=== PATIENT | male | born 1940 | race African-American/Black ===

== ENCOUNTER 2018-03-16 01:27 | Inpatient (IN) | payer MEDICARE, MEDICAID ==
[~2018-03-16] VITALS: Ht 175.3 cm; Wt 84.2 kg
[2018-03-16] VITALS (8 sets, daily range): BP systolic 111–164; BP diastolic 66–82
[~2018-03-16 01:27] MED LIST: ANTIVERT25 MG ORAL; ASPIRIN EC81 MG PO; BYSTOLIC10 MG ORAL; CARDURA4 MG PO; CATAPRES0.1 MG PO; CILOSTAZOL100 MG PO; COLACE100 MG PO; COZAAR50 MG PO; FLOMAX0.4 MG PO; KLOR-CON M1010 MEQ PO; LASIX20 MG PO; METOPROLOL TART25 MG PO; NEURONTIN100 MG PO; NORVASC5 MG PO; VITAMIN B COMP1 EAC1 PO
[2018-03-16] MEDS ORDERED: Acetaminophen 500mg (ES) tab ORAL ONE (02:00)
[2018-03-16] MEDS ORDERED: Isovue-300 100ml vial INJ PRN (02:00)
[2018-03-16 02:28] LABS: BASOPHILS % (AUTO) 1.4 % (0.0-2.0); EOSINOPHILS % (AUTO) 1.2 % (0.0-3.0); HEMATOCRIT 38.5 % (42.0-52.0); HEMOGLOBIN 12.6 G/DL (14.2-18.0); LYMPHOCYTES % (AUTO) 15.3 % (20.0-45.0); MEAN CORPUSCULAR VOLUME 90 FL (80-99); MONOCYTES % (AUTO) 9.1 % (1.0-10.0); NEUTROPHILS % (AUTO) 73.1 % (45.0-75.0); PLATELET COUNT 240 K/UL (150-450); RED BLOOD COUNT 4.28 M/UL (4.70-6.10); RED CELL DISTRIBUTION WIDTH 12.1 % (11.6-14.8); WHITE BLOOD COUNT 8.6 K/UL (4.8-10.8)
[2018-03-16 02:47] LABS: ANION GAP 12 mmol/L (5-15); BLOOD UREA NITROGEN 28 mg/dL (7-18); CALCIUM 9.6 MG/DL (8.5-10.1); CARBON DIOXIDE 24 MMOL/L (21-32); CHLORIDE 107 MMOL/L (98-107); CREATININE 2.4 MG/DL (0.55-1.30); POTASSIUM 4.6 MMOL/L (3.5-5.1); SODIUM 143 MMOL/L (136-145)
[2018-03-16 02:48] LABS: INR 1.1 (0.9-1.1)
[2018-03-16 02:53] LABS: APPEARANCE,URINE CLEAR; BILIRUBIN, URINE NEGATIVE (NEGATIVE); COLOR,URINE PALE YELLOW; GLUCOSE, URINE (UA) 2+ (NEGATIVE); KETONES,URINE NEGATIVE (NEGATIVE); LEUKOCYTE ESTERASE ,URINE NEGATIVE (NEGATIVE); NITRITE,URINE NEGATIVE (NEGATIVE); PH,URINE 5 (4.5-8.0); UROBILINOGEN,URINE NORMAL MG/DL (0.0-1.0)
[2018-03-16 02:57] LABS: PROTEIN,URINE NEGATIVE (NEGATIVE)
[2018-03-16 02:58] LABS: ALANINE AMINOTRANSFERASE 112 U/L (12-78); ALBUMIN/GLOBULIN RATIO 0.9 (1.0-2.7); ALKALINE PHOSPHATASE 110 U/L (46-116); ASPARTATE AMINO TRANSFERASE 56 U/L (15-37); BILIRUBIN,TOTAL 0.4 MG/DL (0.2-1.0)
--- NOTE | 2018-03-16 05:26 | Emergency Room Report ---
History of Present Illness General Chief Complaint: Pain Source: Patient, Significant Other Present Illness HPI Patient presents with left groin pain. This may going on for several weeks. It 's now worsened over the last 3 days. He had a hernia repair in the past. It feels somewhat like that. There is no testicular pain. He has constipation but has moved his bowels. There is abdominal fullness and some discomfort. No dysuria/hematuria. Pain rated 6/10, constant and worse with straining. Pressure and aching. No vomiting. The patient is status post colon resection and left nephrectomy. He has occasional constipation. He has moved his bowels recently and there is no blood. He's not taking any medication for the pain. No chest pain, cough, dyspnea, rashes, headache, joint pain. Allergies: Coded Allergies: No Known Allergies (Unverified , 02/08/12) Patient History Past Medical History: see triage record Past Surgical History: other - Colon surgery, nephrectomy, liver resection Social History: Denies: smoking, alcohol use, drug use Social History Narrative from [facility], Reviewed Nursing Documentation: PMH: Agreed; PSxH: Agreed Nursing Documentation-PMH Hx Hypertension: Yes Hx Diabetes: No Hx Cancer: Yes - COLON, PROSTATE Hx Gastrointestinal Problems: Yes - hernia Hx Neurological Problems: Yes - left nephrectomy Review of Systems All Other Systems: negative except mentioned in HPI Physical Exam Vital Signs Date Time Temp Pulse Resp B/P (MAP) Pulse Ox O2 Delivery O2 Flow Rate FiO2 03/16/18 01:37 98.2 79 16 164/78 98 Room Air Sp02 EP Interpretation: reviewed, normal General Appearance: well appearing, no apparent distress, GCS 15 Head: normocephalic Eyes: bilateral eye normal inspection, bilateral eye PERRL ENT: moist mucus membranes Neck: supple Respiratory: lungs clear, normal breath sounds Cardiovascular #1: regular rate, rhythm Cardiovascular #2: 2+ radial (R) Gastrointestinal: normal inspection, normal bowel sounds, no mass, no guarding , no rebound, distended, tenderness - L groin and LLQ, other - Groin tenderness left side no apparent hernia or bulge Genitourinary: no CVA tenderness, penis normal, scrotum normal Musculoskeletal: back normal, gait/station normal, normal range of motion Neurologic: alert, oriented x3, grossly normal Psychiatric: mood/affect normal Skin: normal inspection, warm/dry Medical Decision Making Diagnostic Impression: Primary Impression: Left groin pain Additional Impressions: Renal insufficiency Hyperglycemia small bowel dilitation s/p left nephrectomy h/o colon cancer ER Course Patient presents with left groin pain. Differential includes inguinal hernia, diverticulitis, urinary tract infection. As he's had a nephrectomy on that side renal stone is less likely. Evaluation will be with labs and CT. The patient be given Tylenol initially. Labs with normal CBC, worsened renal function, never this poor. UA clear. Patient with worsened renal function and CT with possible early SBO. Observation. No PMD, no hide trimmer, no urologist. Unable to have close outpatient follow. Has oncologist and supervisor paper testing. Oncologist wants him to find primary MD. Contact Dr. Medel for observation. Will need repeat evaluation of renal function and follow for possible SBO. Laboratory Tests Test 03/16/18 02:05 03/16/18 02:40 White Blood Count 8.6 K/UL (4.8-10.8) Red Blood Count 4.28 M/UL (4.70-6.10) L Hemoglobin 12.6 G/DL (14.2-18.0) L Hematocrit 38.5 % (42.0-52.0) L Mean Corpuscular Volume 90 FL (80-99) Mean Corpuscular Hemoglobin 29.5 PG (27.0-31.0) Mean Corpuscular Hemoglobin Concent 32.9 G/DL (32.0-36.0) Red Cell Distribution Width 12.1 % (11.6-14.8) Platelet Count 240 K/UL (150-450) Mean Platelet Volume 6.2 FL (6.5-10.1) L Neutrophils (%) (Auto) 73.1 % (45.0-75.0) Lymphocytes (%) (Auto) 15.3 % (20.0-45.0) L Monocytes (%) (Auto) 9.1 % (1.0-10.0) Eosinophils (%) (Auto) 1.2 % (0.0-3.0) Basophils (%) (Auto) 1.4 % (0.0-2.0) Prothrombin Time 11.2 SEC (9.30-11.50) Prothrombin Time INR 1.1 (0.9-1.1) PTT 35 SEC (23-33) H Sodium Level 143 MMOL/L (136-145) Potassium Level 4.6 MMOL/L (3.5-5.1) Chloride Level 107 MMOL/L (98-107) Carbon Dioxide Level 24 MMOL/L (21-32) Anion Gap 12 mmol/L (5-15) Blood Urea Nitrogen 28 mg/dL (7-18) H Creatinine 2.4 MG/DL (0.55-1.30) H Estimate Glomerular Filtration Rate mL/min (>60) Glucose Level 240 MG/DL (74-106) H Calcium Level 9.6 MG/DL (8.5-10.1) Total Bilirubin 0.4 MG/DL (0.2-1.0) Aspartate Amino Transferase (AST) 56 U/L (15-37) H Alanine Aminotransferase (ALT) 112 U/L (12-78) H Alkaline Phosphatase 110 U/L (46-116) Troponin I 0.000 ng/mL (0.000-0.056) Total Protein 8.6 G/DL (6.4-8.2) H Albumin 4.0 G/DL (3.4-5.0) Globulin 4.6 g/dL Albumin/Globulin Ratio 0.9 (1.0-2.7) L Lipase 158 U/L (73-393) Urine Color Pale yellow Urine Appearance Clear Urine pH 5 (4.5-8.0) Urine Specific [place] 1.015 (1.005-1.035) Urine Protein Negative (NEGATIVE) Urine Glucose (UA) 2+ (NEGATIVE) H Urine Ketones Negative (NEGATIVE) Urine Blood Negative (NEGATIVE) Urine Nitrite Negative (NEGATIVE) Urine Bilirubin Negative (NEGATIVE) Urine Urobilinogen Normal MG/DL (0.0-1.0) Urine Leukocyte Esterase Negative (NEGATIVE) Rhythm Strip Diag. Results EP Interpretation: yes Rhythm: NSR, no PVC's, no ectopy CT/MRI/US Diagnostic Results CT/MRI/US Diagnostic Results : Imaging Test Ordered: abd/pelvis Impression no hernia. Dilated small bowels loops, possible SBO. Increased stool load. Last Vital Signs Date Time Temp Pulse Resp B/P (MAP) Pulse Ox O2 Delivery O2 Flow Rate FiO2 03/16/18 07:30 71 16 111/74 100 Room Air 11/26/18 04:00 98.5 Status: improved Referrals: NON PHYSICIAN (PCP) Miguel Linares MD Mar 16, 2018 05:26
[2018-03-16] MEDS ORDERED: CLONIDINE 0.2M0.2 MG ORAL (07:32)
[2018-03-16] MEDS ORDERED: TENORMIN50 MG ORAL (07:32)
[2018-03-16] MEDS ORDERED: AVAPRO300 MG ORAL (07:32)
[2018-03-16] MEDS ORDERED: SPIRONOLACTONE100 MG ORAL (07:32)
[2018-03-16] MEDS ORDERED: METFORMIN HCL500 M1 ORAL (07:32)
[2018-03-16] MEDS ORDERED: CRESTOR40 MG ORAL (07:32)
[2018-03-16] MEDS ORDERED: AMLODIPINE BESY10 MG ORAL (07:32)
[2018-03-16] MEDS ORDERED: AMIODARONE HCL200 MG ORAL (07:32)
[2018-03-16] MEDS ORDERED: ASPIRIN325 MG ORAL (07:32)
[2018-03-16] MEDS ORDERED: COLACE100 MG ORAL (07:32)
--- NOTE | 2018-03-16 08:00 | History and Physical Report ---
DATE OF ADMISSION: 03/16/2018 CHIEF COMPLAINT: Abdominal pain. HISTORY OF PRESENT ILLNESS: The patient is a pleasant 77-year-old male. He has a history of hypertensive heart disease and prior history of cancer, status post resection. He presented from home with complaints of lower abdominal pain and constipation for several days. On evaluation in emergency room, the patient had a CT scan of the abdomen, results which are currently pending. He was noted to have elevated creatinine at 2.4. Otherwise, laboratories were unremarkable. In light of the patient's worsening renal insufficiency, abdominal pain, and distention, he is admitted for further evaluation and care. PAST MEDICAL HISTORY: As above. PAST SURGICAL HISTORY: As above. CURRENT MEDICATIONS: Reconciled and reviewed. ALLERGIES: None. FAMILY HISTORY: None. SOCIAL HISTORY: Negative for tobacco, ethanol, or drugs. REVIEW OF SYSTEMS: GENERAL: No fevers or chills. HEENT: No headaches or visual changes. CARDIOPULMONARY: No chest pain or shortness of breath. GASTROINTESTINAL: No nausea or vomiting. Positive constipation. Positive lower abdominal pain. GENITOURINARY: No urgency or frequency. MUSCULOSKELETAL: No joint pain or swelling. NEUROLOGIC: No seizures. PHYSICAL EXAMINATION: VITAL SIGNS: Temperature 98.5, pulse 75, respirations 18, and blood pressure 146/67. GENERAL: The patient is well developed, in no apparent distress. HEART: Regular rate and rhythm. LUNGS: Clear. ABDOMEN: Soft and distended with normoactive bowel sounds. The patient has multiple healed scars. EXTREMITIES: Without clubbing, cyanosis, or edema. LABORATORY AND IMAGING DATA: Labs showed a creatinine of 2.4. White count was 8 and hemoglobin 12. AST was 56 and ALT was 112. UA was clear. CT scan is currently pending. ASSESSMENT: This is a pleasant male, who complaints of intractable abdominal pain, constipation, and acute on chronic renal failure. He has a prior history of nephrectomy and colectomy. PLAN: Otherwise, he is currently bringing in the patient's medications, we will review meds. We will hydrate the patient gently. If renal function does not improve, we will consider renal ultrasound to rule out hydronephrosis. The patient will receive a bowel regimen. We will consider GI and surgery evaluations. Pending review the patient's CT scan. Plan of care was discussed at the bedside with the patient's family. Chacho Medel M.D. DR: JAHAIRA JOB#: [id number] CC:
[2018-03-16] MEDS ORDERED: Amiodarone 200mg tab ORAL SCH (09:00)
[2018-03-16] MEDS: cloNIDine 0.2mg Tab ORAL SCH ×3 (09:30→21:56)
[2018-03-16] MEDS: Docusate 100mg cap ORAL SCH (09:30)
[2018-03-16] MEDS: Meclizine 25mg tab ORAL SCH ×3 (09:30→18:31)
--- NOTE | 2018-03-16 09:59 | Diagnostic Imaging Report ---
Indication: Abdominal pain Technique: Spiral acquisitions obtained through the abdomen and pelvis. Patient given oral contrast. No IV contrast utilized, per emergency room physician request.. Multiplanar reconstructions were generated. Total dose length product 305.36 and 965 mGycm. CTDIvol(s) 5.36 and 18.4 mGy. Dose reduction achieved using automated exposure control Comparison: 01/13/2011 Findings: Patient was rescanned due to excess image noise on the original image acquisitions. The appendix is normal. The distal small bowel is diffusely markedly dilated. There is gradual tapering at the level of the distal ileum. However, contrast passes the point of narrowing, and completely fills the colon. Contrast is equivocally seen within the colon even on the original image acquisition. No small bowel wall thickening. There is what appears to be in the cited anastomosis in the sigmoid colon. The sigmoid colon distal to the anastomosis is markedly dilated, but no abrupt transition and no obstructive lesion demonstrated. No free or loculated intraperitoneal gas or fluid. Distal esophagus, stomach, duodenum are unremarkable. Lack of IV contrast limits assessment of the solid organs. The liver is unremarkable. The gallbladder is absent, presumably postsurgically. No biliary ductal dilatation. The pancreas, spleen, adrenals are unremarkable. The right kidney demonstrates a calcified lower pole lesion which measures 2.3 cm in diameter, is not well characterized in the absence of IV contrast. It also demonstrates multiple cysts. The left kidney is surgically absent. No pelvic mass or adenopathy. No retroperitoneal or mesenteric mass or adenopathy. The included lung bases demonstrate scarring and bronchiectasis. There is a small pericardial effusion measuring up to 7 mm thick. The bones are unremarkable. Impression: Diffusely dilated distal small bowel, with gradual tapering at the level the distal ileum. Transit of contrast past the point of narrowing and filling of the colon indicates that dilatation is most likely functional in nature rather than due to small bowel obstruction, although mild partial small bowel obstruction not completely excludable. Evidence of prior distal colonic anastomosis. Dilatation of the colon distal to the point of anastomosis is presumably functional in nature as well. Evidence of prior cholecystectomy and left nephrectomy Right renal cysts Small pericardial effusion Basilar pulmonary parenchymal scarring and bronchiectasis This agrees with the preliminary interpretation provided overnight by [facility] service, with some variations. Variations were sent to the [facility] via their website. Calcified right lower pole renal lesion, not necessarily a simple cyst. Further evaluation with ultrasound and/or contrast CT is recommended. This was discussed by phone with Dr. Medel at the time of interpretation The CT scanner at [facility] is accredited by the [employer] and the scans are performed using protocols designed to limit radiation exposure to as low as reasonably achievable to attain images of sufficient resolution adequate for diagnostic evaluation.
[2018-03-16] MEDS: NovoLOG Insulin Flexpen SUBQ SCH ×3 (11:30→20:31)
[2018-03-16] MEDS: Tamsulosin 0.4mg cap ORAL SCH (12:50)
[2018-03-16] MEDS: Doxazosin 4mg tab ORAL SCH (12:50)
[2018-03-16] MEDS: Cilostazol 100mg tab ORAL SCH ×2 (12:51→18:31)
[2018-03-16] MEDS: Aspirin EC 81mg tab ORAL SCH (12:51)
[2018-03-17] VITALS: BP 136/76
[2018-03-17 04:15] VITALS: BP 120/64
[2018-03-17] MEDS: cloNIDine 0.2mg Tab ORAL SCH ×3 (06:00→22:37)
[2018-03-17] MEDS: NovoLOG Insulin Flexpen SUBQ SCH ×4 (06:06→21:09)
--- NOTE | 2018-03-17 06:08 | General Progress Note ---
Assessment/Plan Problem List: (1) SBO (small bowel obstruction) ICD Codes: K56.609 - Unspecified intestinal obstruction, unspecified as to partial versus complete obstruction SNOMED: 035716478 (2) Ileus ICD Codes: K56.7 - Ileus, unspecified SNOMED: 679676218 (3) Colon cancer ICD Codes: C18.9 - Malignant neoplasm of colon, unspecified SNOMED: 241070894 (4) Renal cancer ICD Codes: C64.9 - Malignant neoplasm of unspecified kidney, except renal pelvis SNOMED: 483636952 (5) Dizziness ICD Codes: R42 - Dizziness and giddiness SNOMED: 358560939 (6) Renal insufficiency ICD Codes: N28.9 - Disorder of kidney and ureter, unspecified SNOMED: 772949346, 309141422 (7) Left groin pain ICD Codes: R10.32 - Left lower quadrant pain SNOMED: 379310697, 553004566 Status: stable Assessment/Plan GI eval and eval added reglan monitor for vomiting bowel regime. ivf follow up renal fxn monitor bp meds and titrate as needed Subjective ROS Limited/Unobtainable: No Constitutional: Reports: no symptoms HEENT: Reports: no symptoms Cardiovascular: Reports: no symptoms Respiratory: Reports: no symptoms Gastrointestinal/Abdominal: Reports: abdomen distended, abdominal pain Genitourinary: Reports: no symptoms Neurologic/Psychiatric: Reports: no symptoms Endocrine: Reports: no symptoms Hematologic/Lymphatic: Reports: no symptoms Allergies: Coded Allergies: No Known Allergies (Unverified , 03/16/18) All Systems: reviewed and negative except above Subjective states he feels better but remains distended. CT reviewed with radiology. + dilated loops of small bowel and calcified lesion right kidney. no nausea or vomiting. Objective Last 24 Hour Vital Signs Date Time Temp Pulse Resp B/P (MAP) Pulse Ox O2 Delivery O2 Flow Rate FiO2 03/17/18 04:15 97.9 66 20 120/64 (82) 98 03/17/18 00:00 98.2 71 20 136/76 (96) 97 03/16/18 21:56 118/66 03/16/18 21:56 118/66 (83) 03/16/18 20:38 Room Air 03/16/18 20:31 71 118/74 03/16/18 20:30 71 118/74 03/16/18 20:15 98.9 71 20 118/74 (89) 96 03/16/18 16:00 98.4 82 19 149/72 (97) 98 03/16/18 15:44 149/72 03/16/18 12:52 88 135/97 03/16/18 12:00 98.4 75 18 140/82 (101) 98 03/16/18 11:46 Room Air 03/16/18 08:50 98.2 80 18 135/70 (91) 97 03/16/18 08:48 98.5 88 20 125/85 98 Room Air 82 03/16/18 07:30 71 16 111/74 100 Room Air Intake and Output 03/16/18 03/17/18 18:59 06:59 Intake Total 240 ml Output Total 540 ml Balance -300 ml Intake Oral 240 ml Output Urine Total 540 ml # Voids 3 # Bowel Movements 3 Height (Feet): 5 Height (Inches): 9.00 Weight (Pounds): 200 General Appearance: WD/WN Neck: supple Cardiovascular: normal rate, regular rhythm Respiratory/Chest: chest wall non-tender, lungs clear, normal breath sounds, no respiratory distress Abdomen: normal bowel sounds, non tender, soft, distended Edema: no edema noted Arm (L), no edema noted Arm (R), no edema noted Leg (L), no edema noted Leg (R), no edema noted Pedal (L), no edema noted Pedal (R), no edema noted Generalized Chacho Medel MD Mar 17, 2018 06:08
[2018-03-17 08:00] VITALS: BP 130/80
--- NOTE | 2018-03-17 09:00 | Consultation ---
DATE OF CONSULTATION: 03/17/2018 CONSULTING PHYSICIAN: Jason Cates M.D. REFERRING PHYSICIAN: Chacho Medel M.D. REASON FOR EVALUATION: Renal mass. HISTORY OF PRESENT ILLNESS: This is a 77-year-old gentleman who was admitted to the hospital because of abdominal pain. He was noted to have elevation of serum creatinine. He had an imaging study with CT, which showed a solitary right kidney. There was mention of a mass in the kidney. Urology evaluation was requested. Of note, the patient has a history of renal cell carcinoma. He has had a left radical nephrectomy about 10 years ago. He is able to void fairly well. He has some frequency. There is some questionable history of previous prostate surgery. PAST MEDICAL HISTORY: Significant for above, again left renal cell carcinoma, history of hypertension, history of colon cancer, probable chronic renal insufficiency, and BPH. PAST SURGICAL HISTORY: He has had left radical nephrectomy. He has had colon resection. There is some questionable previous prostate surgery. The patient does not know the details. MEDICATIONS: The patient is currently in the hospital. The patient is on Norvasc, NovoLog, Ecotrin, Tenormin, Catapres, Colace, Cardura, Neurontin, Antivert, Flomax, and . ALLERGIES: No known drug allergies. SOCIAL HISTORY: He is currently nonsmoker. REVIEW OF SYSTEMS: As above. FAMILY HISTORY: Noncontributory. PHYSICAL EXAMINATION: GENERAL: An elderly male, in no acute distress. VITAL SIGNS: Temperature is 97.9 degrees and blood pressure is 120/64. HEENT: Normocephalic. NECK: Supple. ABDOMEN: Shows multiple well-healed scars. BACK: No CVA tenderness. GENITOURINARY: Reveals normal phallus. RECTAL: Reveals what appears to be a smooth prostate, maybe 30 to 40 g. EXTREMITIES: No clubbing or cyanosis. LABORATORY DATA: BUN is 28, creatinine 2.4. Baseline creatinine is unknown to me. Potassium 4.6. White count is 8.6 and hemoglobin 12.6. His UA showed 2+ glucose, otherwise negative. DIAGNOSTIC IMAGING STUDIES: The patient had a CT scan of the abdomen and pelvis. This was a noncontrast study. There was mention of calcified lower pole mass of the right kidney 2.3 cm. There are also multiple renal cysts. Left kidney surgically absent. There was no pelvic adenopathy noted. There was no mention of lower urinary tract issues on the CT scan. IMPRESSION: 1. 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 2. Renal cyst. 3. Renal insufficiency, acute on chronic. 4. Benign prostatic hypertrophy, history. 5. Lower urinary tract symptoms. 6. Rule out neurogenic bladder. PLAN AND DISCUSSION: Again, the patient does have a small right renal mass. This is a solitary kidney. Unfortunately, we cannot use IV contrast because of renal insufficiency. At this time, I would recommend to monitor renal function. He is to continue with Flomax as ordered and if his renal function does improve, we can consider CT with contrast or MRI for better characterization. Otherwise, at this point, because of his solitary kidney and his age, I would recommend serial imaging and at some point if need be, we can consider partial nephrectomy and excision of the mass in the future. I would also recommend cystoscopy at some point to evaluate the lower urinary tract. Thank you, Dr. Medel, for asking me to participate in . Capo Plunkett JOB#: [id number] CC:
[2018-03-17] MEDS: Doxazosin 4mg tab ORAL SCH (11:08)
[2018-03-17] MEDS: Docusate 100mg cap ORAL SCH (11:08)
[2018-03-17] MEDS: Meclizine 25mg tab ORAL SCH ×3 (11:09→17:33)
[2018-03-17] MEDS: Tamsulosin 0.4mg cap ORAL SCH (11:11)
[2018-03-17] MEDS: Cilostazol 100mg tab ORAL SCH ×2 (11:11→17:33)
[2018-03-17] MEDS: Aspirin EC 81mg tab ORAL SCH (11:11)
[2018-03-17 12:00] VITALS: BP 139/79
[2018-03-17 16:00] VITALS: BP 127/70
--- NOTE | 2018-03-17 19:20 | General Progress Note ---
Assessment/Plan Assessment/Plan Assessment - abdominal distention due to small bowel distention - ? chronic - abnormal LFT - Groin pain - Single kidney, CRI Recommendations - check non-contrast MRI of pancreas - Check hepatitis serologies - check CK total - Urology f/u Subjective Allergies: Coded Allergies: No Known Allergies (Unverified , 03/16/18) Objective Last 24 Hour Vital Signs Date Time Temp Pulse Resp B/P (MAP) Pulse Ox O2 Delivery O2 Flow Rate FiO2 03/17/18 14:00 110/70 03/17/18 12:00 98.0 71 14 139/79 (99) 99 03/17/18 11:12 71 139/79 03/17/18 10:15 Room Air 03/17/18 08:00 97.9 70 16 130/80 (97) 100 03/17/18 06:00 120/64 03/17/18 04:15 97.9 66 20 120/64 (82) 98 03/17/18 00:00 98.2 71 20 136/76 (96) 97 03/16/18 21:56 118/66 03/16/18 21:56 118/66 (83) 03/16/18 20:38 Room Air 03/16/18 20:31 71 118/74 03/16/18 20:30 71 118/74 03/16/18 20:15 98.9 71 20 118/74 (89) 96 Intake and Output 03/16/18 03/17/18 19:00 07:00 Intake Total 240 ml 475 ml Output Total 540 ml Balance -300 ml 475 ml Intake Oral 240 ml 400 ml IV Total 75 ml Output Urine Total 540 ml # Voids 3 2 # Bowel Movements 3 Height (Feet): 5 Height (Inches): 9.00 Weight (Pounds): 200 Coty Salazar MD Mar 17, 2018 19:20
[2018-03-17 20:00] VITALS: BP 126/63
[2018-03-17] MEDS ORDERED: Simethicone 80mg tab ORAL PRN (21:00)
[2018-03-17] MEDS: Heparin 5000 units/ml inj SUBQ SCH (21:09)
[2018-03-18] VITALS: BP 116/66
[2018-03-18 04:00] VITALS: BP 127/69
[2018-03-18] MEDS: NovoLOG Insulin Flexpen SUBQ SCH ×4 (06:04→21:00)
[2018-03-18] MEDS: cloNIDine 0.2mg Tab ORAL SCH ×2 (06:06→14:00)
[2018-03-18 06:47] LABS: CREATINE KINASE 84 U/L (26-308)
[2018-03-18 08:27] VITALS: BP 128/72
[2018-03-18] MEDS ORDERED: LORazepam Inj 2mg/ml 1ml IV PRN (08:44)
[2018-03-18] MEDS: Cilostazol 100mg tab ORAL SCH ×2 (09:22→17:22)
[2018-03-18] MEDS: Aspirin EC 81mg tab ORAL SCH (09:23)
[2018-03-18] MEDS: Meclizine 25mg tab ORAL SCH ×3 (09:24→17:26)
[2018-03-18] MEDS: Doxazosin 4mg tab ORAL SCH (09:24)
[2018-03-18] MEDS: Docusate 100mg cap ORAL SCH (09:24)
[2018-03-18] MEDS: Tamsulosin 0.4mg cap ORAL SCH (09:25)
[2018-03-18] MEDS: Heparin 5000 units/ml inj SUBQ SCH ×2 (09:26→21:51)
--- NOTE | 2018-03-18 09:44 | Urology Progress Note ---
Assessment/Plan Assessment/Plan 1. 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 2. Renal cyst. 3. Renal insufficiency, acute on chronic. 4. Benign prostatic hypertrophy, history. 5. Lower urinary tract symptoms. 6. Rule out neurogenic bladder. monitor clinically f/u on abd MRI cont flomax and cardura monitor renal fxn Subjective Allergies: Coded Allergies: No Known Allergies (Unverified , 03/16/18) Subjective all noted, no new changes Objective Last 24 Hour Vital Signs Date Time Temp Pulse Resp B/P (MAP) Pulse Ox O2 Delivery O2 Flow Rate FiO2 03/18/18 09:25 64 128/72 03/18/18 08:27 98.1 64 16 128/72 (90) 97 03/18/18 06:06 118/67 03/18/18 04:00 98.0 67 19 127/69 (88) 97 03/18/18 00:00 98.2 70 19 116/66 (83) 96 03/17/18 22:37 125/67 03/17/18 21:07 69 126/63 03/17/18 21:07 69 126/63 03/17/18 21:00 Room Air 03/17/18 20:00 97.9 69 18 126/63 (84) 96 03/17/18 16:00 98.1 68 18 127/70 (89) 97 03/17/18 14:00 110/70 03/17/18 12:00 98.0 71 14 139/79 (99) 99 03/17/18 11:12 71 139/79 03/17/18 10:15 Room Air Intake and Output 03/17/18 03/18/18 18:59 06:59 Intake Total 705 ml 900 ml Output Total 350 ml Balance 705 ml 550 ml Intake Oral 630 ml IV Total 75 ml 900 ml Output Urine Total 350 ml # Voids 5 2 Current Medications Medications (Trade) Dose Ordered Sig/Damien Route PRN Reason Start Time Stop Time Status Last Admin Dose Admin Acetaminophen (Tylenol) 650 mg Q4H PRN ORAL Mild Pain/Temp > 100.5 03/16/18 18:30 04/15/18 18:29 Amlodipine Besylate (Norvasc) 10 mg BEDTIME ORAL 03/16/18 21:00 04/15/18 20:59 03/17/18 21:07 Aspirin (Ecotrin) 81 mg DAILY ORAL 03/16/18 09:30 04/15/18 09:29 03/18/18 09:23 Atenolol (Tenormin) 50 mg Q12HR ORAL 03/16/18 09:30 04/15/18 09:29 03/18/18 09:25 Cilostazol (Pletal) 100 mg TWICE A DAY ORAL 03/16/18 09:00 04/15/18 08:59 03/18/18 09:22 Clonidine HCl (Catapres tab) 0.2 mg Q8HR ORAL 03/16/18 09:30 04/15/18 09:29 03/18/18 06:06 Dextrose (Dextrose 50%) 25 ml Q30M PRN IV Hypoglycemia 03/16/18 09:30 04/15/18 09:29 Dextrose (Dextrose 50%) 50 ml Q30M PRN IV Hypoglycemia 03/16/18 09:30 04/15/18 09:29 Docusate Sodium (Colace) 100 mg DAILY ORAL 03/16/18 09:30 04/15/18 09:29 03/18/18 09:24 Doxazosin Mesylate (Cardura) 4 mg DAILY ORAL 03/16/18 09:30 04/15/18 09:29 03/18/18 09:24 Gabapentin (Neurontin) 100 mg BID ORAL 03/16/18 09:30 04/15/18 09:29 03/18/18 09:25 Heparin Sodium (Porcine) (Heparin 5000 units/ml) 5,000 units EVERY 12 HOURS SUBQ 03/17/18 21:00 04/16/18 20:59 03/18/18 09:26 Insulin Aspart (NovoLOG) BEFORE MEALS AND HS SUBQ 03/16/18 11:30 04/15/18 11:29 03/17/18 21:09 Iopamidol (Isovue-300 100ml) 100 ml NOW PRN INJ Radiology Procedure 03/16/18 02:00 Lorazepam (Ativan 2mg/ml 1ml) 1 mg ONCE PRN IV PRIOR TO MRI 03/18/18 08:44 03/18/18 23:59 03/18/18 09:08 Meclizine HCl (Antivert) 25 mg THREE TIMES A DAY ORAL 03/16/18 09:30 04/15/18 09:29 03/18/18 09:24 Simethicone (Mylicon) 80 mg TIDPRN PRN ORAL Gas pain/bloating 03/17/18 21:00 04/16/18 20:59 03/17/18 21:07 Sodium Chloride 1,000 ml @ 75 mls/hr [id number] IV 03/17/18 05:45 04/16/18 05:44 03/18/18 01:51 Tamsulosin HCl (Flomax) 0.4 mg DAILY ORAL 03/16/18 09:30 04/15/18 09:29 03/18/18 09:25 Laboratory Tests 03/18/18 05:40: Total Creatine Kinase 84, Hepatitis A IgM Antibody [Pending], Hepatitis B Surface Antigen [Pending], Hepatitis B Core IgM Antibody [Pending], Hepatitis C Antibody [Pending] Height (Feet): 5 Height (Inches): 9.00 Weight (Pounds): 185 Objective exam stable Jason Cates MD Mar 18, 2018 09:44
[2018-03-18 12:06] VITALS: BP 155/74
--- NOTE | 2018-03-18 15:07 | Diagnostic Imaging Report ---
Indication: Questionable mass in the right kidney seen on recent CT. History of left nephrectomy for renal cell carcinoma, history of colon carcinoma and prostate carcinoma. Technique: MRI of the abdomen was performed in a 1.5 [place] magnet. Pulse sequences obtained include coronal and axial T2 single shot fast spin echo breathhold, axial T1 gradient echo in and out of phase, axial 2-D fiesta, axial T2 fast spin-echo with fat saturation. Comparison: Noncontrast CT abdomen 03/16/2018. Findings: There is a sharply circumscribed T2 hyperintense focus in the lower pole the right kidney with the rim of low signal intensity corresponding to the rim calcified lesion on recent noncontrast CT. Evaluation is limited without gadolinium but on the basis of the current examination this is compatible with a calcified cyst. There are multiple additional cysts within the right kidney of varying size. Left nephrectomy noted. There is no free fluid. The liver is unremarkable on this examination. Gallbladder is absent. There is breathing motion which limits evaluation. Pancreas is unremarkable. There is no biliary ductal dilatation identified. There is a small pericardial effusion. Trace bilateral pleural effusions noted. IMPRESSION: Calcified 1 cm cystic lesion in the lower pole right kidney. Evaluation of this lesion and general evaluation for tumor is limited without gadolinium administration. Multiple cysts within the right kidney. Breathing motion artifact limiting study. Left nephrectomy Trace pericardial effusion. Trace bilateral pleural effusion
[2018-03-18 15:55] VITALS: BP 128/69
--- NOTE | 2018-03-18 16:30 | General Progress Note ---
Assessment/Plan Problem List: (1) SBO (small bowel obstruction) ICD Codes: K56.609 - Unspecified intestinal obstruction, unspecified as to partial versus complete obstruction SNOMED: 511307069 (2) Ileus ICD Codes: K56.7 - Ileus, unspecified SNOMED: 270036163 (3) Colon cancer ICD Codes: C18.9 - Malignant neoplasm of colon, unspecified SNOMED: 989292082 (4) Renal cancer ICD Codes: C64.9 - Malignant neoplasm of unspecified kidney, except renal pelvis SNOMED: 589728268 (5) Dizziness ICD Codes: R42 - Dizziness and giddiness SNOMED: 106930553 (6) Renal insufficiency ICD Codes: N28.9 - Disorder of kidney and ureter, unspecified SNOMED: 327066655, 197457399 (7) Left groin pain ICD Codes: R10.32 - Left lower quadrant pain SNOMED: 226541702, 236518566 Status: stable, progressing Assessment/Plan GI eval and eval appreciated added reglan monitor for vomiting bowel regime. ivf follow up renal fxn follow up MRI monitor bp meds and titrate as needed Subjective ROS Limited/Unobtainable: No Constitutional: Reports: malaise, weakness HEENT: Reports: no symptoms Cardiovascular: Reports: no symptoms Respiratory: Reports: no symptoms Gastrointestinal/Abdominal: Reports: no symptoms Genitourinary: Reports: no symptoms Neurologic/Psychiatric: Reports: pre-existing deficit Endocrine: Reports: no symptoms Hematologic/Lymphatic: Reports: anemia Allergies: Coded Allergies: No Known Allergies (Unverified , 03/16/18) All Systems: reviewed and negative except above Subjective states he feels better but remains distended. CT reviewed with radiology. + dilated loops of small bowel and calcified lesion right kidney. no nausea or vomiting. Objective Last 24 Hour Vital Signs Date Time Temp Pulse Resp B/P (MAP) Pulse Ox O2 Delivery O2 Flow Rate FiO2 03/18/18 15:55 97.9 65 20 128/69 (88) 97 03/18/18 14:00 105/66 03/18/18 12:06 98.7 67 16 155/74 (101) 96 03/18/18 11:23 Room Air 03/18/18 09:25 64 128/72 03/18/18 09:00 Room Air 03/18/18 08:27 98.1 64 16 128/72 (90) 97 03/18/18 06:06 118/67 03/18/18 04:00 98.0 67 19 127/69 (88) 97 03/18/18 00:00 98.2 70 19 116/66 (83) 96 03/17/18 22:37 125/67 03/17/18 21:07 69 126/63 03/17/18 21:07 69 126/63 03/17/18 21:00 Room Air 03/17/18 20:00 97.9 69 18 126/63 (84) 96 Intake and Output 03/17/18 03/18/18 19:00 07:00 Intake Total 705 ml 825 ml Output Total 350 ml Balance 705 ml 475 ml Intake Oral 630 ml IV Total 75 ml 825 ml Output Urine Total 350 ml # Voids 5 2 Laboratory Tests 03/18/18 05:40: Total Creatine Kinase 84, Hepatitis A IgM Antibody [Pending], Hepatitis B Surface Antigen [Pending], Hepatitis B Core IgM Antibody [Pending], Hepatitis C Antibody [Pending] Height (Feet): 5 Height (Inches): 9.00 Weight (Pounds): 185 Objective General Appearance: WD/WN Neck: supple Cardiovascular: normal rate, regular rhythm Respiratory/Chest: chest wall non-tender, lungs clear, normal breath sounds, no respiratory distress Abdomen: normal bowel sounds, non tender, soft, distended Edema: no edema noted Arm (L), no edema noted Arm (R), no edema noted Leg (L), no edema noted Leg (R), no edema noted Pedal (L), no edema noted Pedal (R), no edema noted Generalized Chacho Medel MD Mar 18, 2018 16:30
[2018-03-18 19:46] LABS: ANION GAP 11 mmol/L (5-15); BLOOD UREA NITROGEN 27 mg/dL (7-18); CALCIUM 8.4 MG/DL (8.5-10.1); CARBON DIOXIDE 22 MMOL/L (21-32); CHLORIDE 107 MMOL/L (98-107); POTASSIUM 4.6 MMOL/L (3.5-5.1); SODIUM 140 MMOL/L (136-145)
[2018-03-18 20:00] VITALS: BP 111/59
--- NOTE | 2018-03-18 21:24 | General Progress Note ---
Assessment/Plan Assessment/Plan Assessment - abdominal distention due to small bowel distention - ? chronic - abnormal LFT - hepatitis serologies pending - Groin pain - Single kidney, CRI Recommendations - follow exam and LFT - laxatives PRN - f/u hepatitis serologies - Urology f/u Subjective Allergies: Coded Allergies: No Known Allergies (Unverified , 03/16/18) Subjective above noted Had MRI today normal pancreas and biliary tree on MRI small cystic renal lesion seen Objective Last 24 Hour Vital Signs Date Time Temp Pulse Resp B/P (MAP) Pulse Ox O2 Delivery O2 Flow Rate FiO2 03/18/18 20:00 97.7 69 18 111/59 (76) 99 03/18/18 15:55 97.9 65 20 128/69 (88) 97 03/18/18 14:00 105/66 03/18/18 12:06 98.7 67 16 155/74 (101) 96 03/18/18 11:23 Room Air 03/18/18 09:25 64 128/72 03/18/18 09:00 Room Air 03/18/18 08:27 98.1 64 16 128/72 (90) 97 03/18/18 06:06 118/67 03/18/18 04:00 98.0 67 19 127/69 (88) 97 03/18/18 00:00 98.2 70 19 116/66 (83) 96 03/17/18 22:37 125/67 Intake and Output 03/17/18 03/18/18 19:00 07:00 Intake Total 705 ml 825 ml Output Total 350 ml Balance 705 ml 475 ml Intake Oral 630 ml IV Total 75 ml 825 ml Output Urine Total 350 ml # Voids 5 2 Laboratory Tests 03/18/18 05:40: Total Creatine Kinase 84, Hepatitis A IgM Antibody [Pending], Hepatitis B Surface Antigen [Pending], Hepatitis B Core IgM Antibody [Pending], Hepatitis C Antibody [Pending] 03/18/18 16:50: Arterial Blood pH 7.370, Arterial Blood Partial Pressure CO2 35.8, Arterial Blood Partial Pressure O2 95.9, Arterial Blood HCO3 20.4L, Arterial Blood Oxygen Saturation 95.6, Arterial Blood Base Excess -4.2L, Chet Test Positive 03/18/18 19:00: Sodium Level 140, Potassium Level 4.6, Chloride Level 107, Carbon Dioxide Level 22, Anion Gap 11, Blood Urea Nitrogen 27H, Creatinine 2.0H, Estimat Glomerular Filtration Rate , Glucose Level 186H, Calcium Level 8.4L, Troponin I 0.009 Height (Feet): 5 Height (Inches): 9.00 Weight (Pounds): 185 Objective WDWN NCAT supple CTA RR soft mildly distended no edema non focal Coty Salazar MD Mar 18, 2018 21:24
[2018-03-19] VITALS: BP 115/58
[2018-03-19 04:00] VITALS: BP 122/71
[2018-03-19] MEDS: NovoLOG Insulin Flexpen SUBQ SCH ×3 (06:30→16:30)
[2018-03-19 07:37] LABS: ALANINE AMINOTRANSFERASE 88 U/L (12-78); ALBUMIN 3.1 G/DL (3.4-5.0); ALBUMIN/GLOBULIN RATIO 0.8 (1.0-2.7); ALKALINE PHOSPHATASE 74 U/L (46-116); ANION GAP 9 mmol/L (5-15); ASPARTATE AMINO TRANSFERASE 50 U/L (15-37); BILIRUBIN,TOTAL 0.4 MG/DL (0.2-1.0); BLOOD UREA NITROGEN 27 mg/dL (7-18); CALCIUM 8.4 MG/DL (8.5-10.1); CARBON DIOXIDE 23 MMOL/L (21-32); CHLORIDE 109 MMOL/L (98-107); CREATININE 1.9 MG/DL (0.55-1.30); POTASSIUM 4.5 MMOL/L (3.5-5.1); SODIUM 141 MMOL/L (136-145)
[2018-03-19 08:00] VITALS: BP 136/96
[2018-03-19] MEDS: Meclizine 25mg tab ORAL SCH ×2 (08:57→13:12)
[2018-03-19] MEDS ORDERED: Doxazosin 4mg tab ORAL SCH (09:00)
[2018-03-19] MEDS ORDERED: Tamsulosin 0.4mg cap ORAL SCH (09:00)
[2018-03-19] MEDS ORDERED: Docusate 100mg cap ORAL SCH (09:00)
[2018-03-19] MEDS ORDERED: Aspirin EC 81mg tab ORAL SCH (09:00)
[2018-03-19] MEDS ORDERED: Cilostazol 100mg tab ORAL SCH (09:00)
[2018-03-19] MEDS ORDERED: Heparin 5000 units/ml inj SUBQ SCH (09:00)
--- NOTE | 2018-03-19 10:01 | Urology Progress Note ---
Assessment/Plan Assessment/Plan 1. 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 2. Renal cyst. 3. Renal insufficiency, acute on chronic. 4. Benign prostatic hypertrophy, history. 5. Lower urinary tract symptoms. 6. Rule out neurogenic bladder. monitor clinically cont flomax and cardura monitor renal fxn management of renal mass as outpt would probably do serial imaging vs excision of mass d/w pt's son Subjective Allergies: Coded Allergies: No Known Allergies (Unverified , 03/16/18) Subjective all noted, no new changes Objective Last 24 Hour Vital Signs Date Time Temp Pulse Resp B/P (MAP) Pulse Ox O2 Delivery O2 Flow Rate FiO2 03/19/18 08:57 73 136/96 03/19/18 08:00 98.0 73 20 136/96 (109) 95 03/19/18 04:00 69 03/19/18 04:00 97.0 66 18 122/71 (88) 96 03/19/18 00:00 97.4 65 18 115/58 (77) 98 03/19/18 00:00 66 03/18/18 21:50 69 111/59 03/18/18 21:00 Room Air 03/18/18 20:00 97.7 69 18 111/59 (76) 99 03/18/18 20:00 65 03/18/18 15:55 97.9 65 20 128/69 (88) 97 03/18/18 14:00 105/66 03/18/18 12:06 98.7 67 16 155/74 (101) 96 03/18/18 11:23 Room Air Intake and Output 03/18/18 03/19/18 18:59 06:59 Intake Total 1230 ml Output Total 200 ml Balance 1030 ml Intake Oral 480 ml IV Total 750 ml Output Urine Total 200 ml # Voids 3 Current Medications Medications (Trade) Dose Ordered Sig/Damien Route PRN Reason Start Time Stop Time Status Last Admin Dose Admin Acetaminophen (Tylenol) 650 mg Q4H PRN ORAL Mild Pain/Temp > 100.5 03/19/18 06:30 04/15/18 18:29 Amlodipine Besylate (Norvasc) 10 mg BEDTIME ORAL 03/19/18 21:00 04/15/18 20:59 Aspirin (Ecotrin) 81 mg DAILY ORAL 03/19/18 09:00 04/15/18 09:29 03/19/18 08:57 Atenolol (Tenormin) 50 mg DAILY ORAL 03/19/18 09:00 04/18/18 08:59 03/19/18 08:57 Cilostazol (Pletal) 100 mg TWICE A DAY ORAL 03/19/18 09:00 04/15/18 08:59 03/19/18 08:57 Dextrose (Dextrose 50%) 25 ml Q30M PRN IV Hypoglycemia 03/19/18 06:30 04/15/18 09:29 Dextrose (Dextrose 50%) 50 ml Q30M PRN IV Hypoglycemia 03/19/18 06:30 04/15/18 09:29 Docusate Sodium (Colace) 100 mg DAILY ORAL 03/19/18 09:00 04/15/18 09:29 03/19/18 08:57 Doxazosin Mesylate (Cardura) 4 mg DAILY ORAL 03/19/18 09:00 04/15/18 09:29 03/19/18 08:57 Gabapentin (Neurontin) 100 mg BID ORAL 03/19/18 09:00 04/15/18 09:29 03/19/18 08:57 Heparin Sodium (Porcine) (Heparin 5000 units/ml) 5,000 units EVERY 12 HOURS SUBQ 03/19/18 09:00 04/16/18 20:59 03/19/18 08:59 Insulin Aspart (NovoLOG) BEFORE MEALS AND HS SUBQ 03/19/18 06:30 04/15/18 11:29 Iopamidol (Isovue-300 100ml) 100 ml NOW PRN INJ Radiology Procedure 03/20/18 02:00 Meclizine HCl (Antivert) 25 mg THREE TIMES A DAY ORAL 03/19/18 09:00 04/15/18 09:29 03/19/18 08:57 Simethicone (Mylicon) 80 mg TIDPRN PRN ORAL Gas pain/bloating 03/19/18 21:00 04/16/18 20:59 Sodium Chloride 1,000 ml @ 75 mls/hr [id number] IV 03/19/18 06:30 04/16/18 05:44 Tamsulosin HCl (Flomax) 0.4 mg DAILY ORAL 03/19/18 09:00 04/15/18 09:29 03/19/18 08:56 Laboratory Tests 03/18/18 16:50: Arterial Blood pH 7.370, Arterial Blood Partial Pressure CO2 35.8, Arterial Blood Partial Pressure O2 95.9, Arterial Blood HCO3 20.4L, Arterial Blood Oxygen Saturation 95.6, Arterial Blood Base Excess -4.2L, Chet Test Positive 03/18/18 19:00: Sodium Level 140, Potassium Level 4.6, Chloride Level 107, Carbon Dioxide Level 22, Anion Gap 11, Blood Urea Nitrogen 27H, Creatinine 2.0H, Estimat Glomerular Filtration Rate , Glucose Level 186H, Calcium Level 8.4L, Troponin I 0.009 03/19/18 06:17: Sodium Level 141, Potassium Level 4.5, Chloride Level 109H, Carbon Dioxide Level 23, Anion Gap 9, Blood Urea Nitrogen 27H, Creatinine 1.9H, Estimat Glomerular Filtration Rate , Glucose Level 112H, Calcium Level 8.4L, Total Bilirubin 0.4, Aspartate Amino Transf (AST/SGOT) 50H, Alanine Aminotransferase ( ALT/SGPT) 88H, Alkaline Phosphatase 74, Total Protein 6.9, Albumin 3.1L, Globulin 3.8, Albumin/Globulin Ratio 0.8L Height (Feet): 5 Height (Inches): 9.00 Weight (Pounds): 185 Objective exam stable abd MRI noted Jason Cates MD Mar 19, 2018 10:01
--- NOTE | 2018-03-19 10:56 | Diagnostic Imaging Report ---
Indications: Altered mental status Technique: Spiral acquisitions obtained through the brain. Angled axial and coronal 5 x 5 mm slices were reconstructed. Total dose length product 1404.24 mGycm. CTDI vol(s) 70.38 mGy. Dose reduction achieved using automated exposure control Comparison: 07/11/2013 Findings: There is age-related enlargement of the ventricles and extra-axial CSF spaces. There is periventricular deep white matter low-attenuation consistent with chronic ischemic change. No acute intracranial hemorrhage or edema. No mass effect nor midline shift. Normal silva-white differentiation. Visualized orbits and sinuses are unremarkable. The calvarium is intact. The mastoids are clear. There is no significant interim change. Impression: Chronic and age-related changes. Negative for acute intracranial bleed or mass effect The CT scanner at [facility] is accredited by the [employer] and the scans are performed using protocols designed to limit radiation exposure to as low as reasonably achievable to attain images of sufficient resolution adequate for diagnostic evaluation.
[2018-03-19 12:00] VITALS: BP 127/61
[2018-03-19 16:00] VITALS: BP 120/54
--- NOTE | 2018-03-19 19:13 | General Progress Note ---
Assessment/Plan Assessment/Plan Assessment - abdominal distention due to small bowel distention - ? chronic, currently asymptomatic - abnormal LFT - hepatitis serologies negative, likely fatty liver - Groin pain - resolved - Single kidney, CRI - advised pt to see GI for outpt colonoscopy/EGD Recommendations - follow exam and LFT - laxatives PRN - d/c planning - patient given card to call to make appt Subjective Allergies: Coded Allergies: No Known Allergies (Unverified , 03/16/18) Subjective above noted seen with son at bedside no further abd pain tolerating PO Objective Last 24 Hour Vital Signs Date Time Temp Pulse Resp B/P (MAP) Pulse Ox O2 Delivery O2 Flow Rate FiO2 03/19/18 16:00 98.1 76 20 120/54 (76) 98 03/19/18 12:00 76 03/19/18 12:00 97.6 78 20 127/61 (83) 96 03/19/18 09:00 Room Air 03/19/18 08:57 73 136/96 03/19/18 08:00 98.0 73 20 136/96 (109) 95 03/19/18 04:00 69 03/19/18 04:00 97.0 66 18 122/71 (88) 96 03/19/18 00:00 97.4 65 18 115/58 (77) 98 03/19/18 00:00 66 03/18/18 21:50 69 111/59 03/18/18 21:00 Room Air 03/18/18 20:00 97.7 69 18 111/59 (76) 99 03/18/18 20:00 65 Intake and Output 03/18/18 03/19/18 19:00 07:00 Intake Total 1230 ml Output Total 200 ml Balance 1030 ml Intake Oral 480 ml IV Total 750 ml Output Urine Total 200 ml # Voids 3 Laboratory Tests 03/19/18 06:17: Sodium Level 141, Potassium Level 4.5, Chloride Level 109H, Carbon Dioxide Level 23, Anion Gap 9, Blood Urea Nitrogen 27H, Creatinine 1.9H, Estimat Glomerular Filtration Rate , Glucose Level 112H, Calcium Level 8.4L, Total Bilirubin 0.4, Aspartate Amino Transf (AST/SGOT) 50H, Alanine Aminotransferase ( ALT/SGPT) 88H, Alkaline Phosphatase 74, Total Protein 6.9, Albumin 3.1L, Globulin 3.8, Albumin/Globulin Ratio 0.8L Height (Feet): 5 Height (Inches): 9.00 Weight (Pounds): 185 Objective WDWN NCAT supple CTA RR soft mildly distended no edema non focal Coty Salazar MD Mar 19, 2018 19:13
[2018-03-19] MEDS ORDERED: Simethicone 80mg tab ORAL PRN (21:00)
[2018-03-20] MEDS ORDERED: Isovue-300 100ml vial INJ PRN (02:00)
--- NOTE | 2018-03-20 11:08 | Discharge Summary ---
Discharge Summary Discharge Summary _ DATE OF ADMISSION: 03/16/2018 DATE OF DISCHARGE: 03/19/2018 CONSULTANTS: Dr. Coty Cates BRIEF HOSPITAL COURSE: Patient is a 77-year-old male, with history of hypertensive heart disease and prior history of renal cell carcinoma, status post resection. He presented from home with complaints of lower abdominal pain and constipation for several days. On evaluation at ED, he was noted to have elevated creatinine of 2.4. CT of the abdomen and pelvis showed diffusely dilated small bowel with gradual tapering at the level of the distal ileum. There was evidence of prior distal colonic anastomosis, dilatation of the colon distal to the point of anastomosis ; evidence of prior cholecystectomy and left nephrectomy. In light of patient' s worsening renal function, abdominal pain and distention, he was admitted for further evaluation and care. She was given gentle IV hydration. GI and urologist was consulted. Patient had a history of renal cell carcinoma, status post left radical nephrectomy about [address] scan of the abdomen and pelvis showed a calcified lower pole mass in the right kidney. Patient has a solitary right kidney with a 2 cm mass. Unfortunately unable to use IV contrast due to renal insufficiency. Renal function was monitored. He was given Flomax and Cardura. He had elevated LFTs. MRI of the abdomen showed normal pancreas and biliary tree. Hepatitis panel was negative. Elevated LFTs possibly from fatty liver. CT of the head showed chronic age-related changes. Negative for acute intracranial bleed or mass effect. Renal function improved. He was tolerating diet. He was recommended management of renal mass to be done as outpatient. Patient was discharged home. FINAL DIAGNOSES: Abdominal pain and distention possibly due to ileus Renal cell carcinoma status post left nephrectomy Acute on chronic renal failure Dizziness Left groin pain Elevated LFTs possibly due to fatty liver Solitary right kidney with 2 cm mass BPH DISPOSITION: Patient was discharged home. DISCHARGE INSTRUCTIONS: Follow up in a week. I have been assigned to dictate discharge summary on this account, and I was not involved in the patient's management. Brenda Mendieta NP Mar 20, 2018 11:08
--- NOTE | 2018-03-20 12:30 | Consultation ---
DATE OF CONSULTATION: 03/17/2018 GASTROENTEROLOGY CONSULTATION CONSULTING PHYSICIAN: Coty Salazar M.D. CHIEF COMPLAINT: I was asked to see this patient by Dr. Chacho Medel for evaluation of abdominal distention. HISTORY OF PRESENT ILLNESS: The patient is a pleasant 77-year-old man with multiple medical problems who was admitted to the hospital due to abdominal discomfort and constipation for three days. The patient notes that previously he had a history of groin area pain. Subsequent to admission to the hospital and receiving the CT scan, the patient yesterday. It appears that he is mildly constipated. He normally goes to the bathroom every two to three days. His last colonoscopy was about nine years ago. He has had no nausea or vomiting. The CT scan showed distal small bowel dilatation obstruction. Of note that the patient had apparently partial colon resection due to history of colon cancer. He has also had one-sided nephrectomy due to renal cell carcinoma. His creatinine is elevated. The CT scan will therefore not be done with IV contrast. PAST MEDICAL HISTORY: History of hypertension; history of colon cancer, status post resection; history of kidney cancer, status post removal of one kidney; and status post cholecystectomy. FAMILY HISTORY: Noncontributory. ALLERGIES: None. SOCIAL HISTORY: The patient does not smoke or drink alcohol. REVIEW OF SYSTEMS: Otherwise negative. MEDICATIONS: See the chart list for details. PHYSICAL EXAMINATION: GENERAL: This is a pleasant man, seen in his room. HEENT: Normocephalic and atraumatic. Sclerae are anicteric. Oropharynx is clear. NECK: Supple. CHEST: Clear to auscultation. CARDIOVASCULAR: Revealed regular rate. ABDOMEN: Soft, tympanitic, and mildly distended. There is no organomegaly. EXTREMITIES: Revealed no edema. LABORATORY DATA: Noted. ASSESSMENT: This patient has some degree of abdominal distention, which may be chronic for him. He does have some small bowel dilatation, but this may be functional in nature since there is no obstruction. We will follow his exam and bowel habits conservatively. The patient does also have some abnormal liver tests of unclear etiology. pathology, but no intravenous contrast was used. An MRI can be done, which may show some additional inflammation. Hepatitis serologies will also be drawn. RECOMMENDATIONS: Per above discussion and per orders written in the chart. Thank you for asking me to participate in the care of this patient. Coty Salazar M.D. DR: RADHA JOB#: [id number] CC:
--- NOTE | 2018-03-20 12:30 | Discharge Summary ---
DATE OF ADMISSION: 03/16/2018 DATE OF DISCHARGE: 03/19/2018 ADMISSION DIAGNOSES: 1. Abdominal pain. 2. Abdominal distention. 3. History of colon cancer. 4. History of renal cell carcinoma. 5. Acute on chronic renal failure. DISCHARGE DIAGNOSES: 1. Abdominal pain. 2. Abdominal distention. 3. History of colon cancer. 4. History of renal cell carcinoma. 5. Acute on chronic renal failure. HOSPITAL COURSE: The patient is a pleasant male, admitted with complaints of abdominal pain and elevated creatinine. The patient had a history of renal cell carcinoma, status post nephrectomy as well as colon cancer, status post partial colectomy. He was admitted and hydrated. His diuretics were discontinued in light of the worsening renal insufficiency. His hospital course was complicated by an episode of syncope likely secondary to Ativan and low blood pressure. Blood pressure medications were again adjusted. The patient was continued on hydration. His renal function did improve down to 1.8. He had a CT scan of the head that was unremarkable. He had a CAT scan and later MRI of the abdomen showed distention of the small bowel, this was felt to be chronic after discussing with family members. Symptoms have been persisting now for several years. He was felt to be stable for discharge with outpatient followup. DISCHARGE MEDICATIONS: Please see discharge list for discharge medications. DIET: Cardiac diet. ACTIVITY: Ad-Chinyere. FOLLOWUP: The patient will follow up in the office in one to two weeks. Chacho Medel M.D. DR: ANISA JOB#: [id number] CC:
== END 2018-03-19 18:03 | disposition home or self-care (01) | DRG 389 ==
LOC: EMR 01:54 → 4E 06:37 → EDBEDREQ 06:40 → OBSVTOIN 08:50 → 4E 20:38 → 2E 03-18 18:00
DX: K56.7 Ileus, unspecified (principal); N17.9 Acute kidney failure, unspecified; Z85.528 Personal history of other malignant neoplasm of kidney; Z90.5 Acquired absence of kidney; I13.10 Hypertensive heart and chronic kidney disease without heart failure, with stage 1 through stage 4 chronic kidney disease, or unspecified chronic kidney disease; R10.30 Lower abdominal pain, unspecified; N18.9 Chronic kidney disease, unspecified; R42 Dizziness and giddiness; K76.0 Fatty (change of) liver, not elsewhere classified; N28.89 Other specified disorders of kidney and ureter; N40.1 Benign prostatic hyperplasia with lower urinary tract symptoms; Z90.49 Acquired absence of other specified parts of digestive tract
CPT/HCPCS: 36415; 36600; 70450; 74176; 74181; 80048; 80053; 81003; 82550; 82803; 82962; 83690; 84484; 85025; 85610; 85730; 86705; 86709; 86803; 87340; 99284; J1815

== ENCOUNTER 2019-09-22 17:56 | Emergency (ER) | payer MEDICARE, MEDICAID ==
[~2019-09-22] VITALS: Ht 175.3 cm; Wt 81.6 kg
[~2019-09-22 17:56] MED LIST changes: +AMIODARONE HCL200 MG ORAL; +AMLODIPINE BESY10 MG ORAL; +ASPIRIN325 MG ORAL; +AVAPRO300 MG ORAL; +CLONIDINE 0.2M0.2 MG ORAL; +COLACE100 MG ORAL; +CRESTOR40 MG ORAL; +MECLIZINE HCL25 MG ORAL; +METFORMIN HCL500 M1 ORAL; +SPIRONOLACTONE100 MG ORAL; +TENORMIN50 MG ORAL
--- NOTE | 2019-09-22 18:18 | NUR ---
ED Nurse Note:pt. came from home with c/o general weakness, nausea vomiting and cough for 1 week, A/Ox4 ambulatory with unsteady gait, VSS
[2019-09-22 19:04] VITALS: BP 150/81
--- NOTE | 2019-09-22 19:11 | NUR ---
ED Nurse Note:blood sent to labs, given IV fluids
--- NOTE | 2019-09-22 19:15 | NUR ---
ED Nurse Note: Report received from MARIA E king. Pt is resting in bed, NAD. Will continue to monitor.
[2019-09-22 19:17] LABS: BASOPHILS % (AUTO) 2.5 % (0.0-2.0); HEMATOCRIT 41.8 % (42.0-52.0); HEMOGLOBIN 13.1 G/DL (14.2-18.0); LYMPHOCYTES % (AUTO) 8.6 % (20.0-45.0); MEAN CORPUSCULAR VOLUME 94 FL (80-99); MONOCYTES % (AUTO) 16.9 % (1.0-10.0); PLATELET COUNT 221 K/UL (150-450); RED BLOOD COUNT 4.45 M/UL (4.70-6.10); RED CELL DISTRIBUTION WIDTH 13.3 % (11.6-14.8); WHITE BLOOD COUNT 7.9 K/UL (4.8-10.8)
[2019-09-22 19:29] LABS: ANION GAP 14 mmol/L (5-15); BLOOD UREA NITROGEN 14 mg/dL (7-18); CALCIUM 9.7 MG/DL (8.5-10.1); CARBON DIOXIDE 24 MMOL/L (21-32); CHLORIDE 101 MMOL/L (98-107); CREATININE 2.3 MG/DL (0.55-1.30); SODIUM 139 MMOL/L (136-145)
[2019-09-22 19:34] LABS: ALANINE AMINOTRANSFERASE 40 U/L (12-78); ALBUMIN 4.2 G/DL (3.4-5.0); ALKALINE PHOSPHATASE 93 U/L (46-116); ASPARTATE AMINO TRANSFERASE 37 U/L (15-37); BILIRUBIN,TOTAL 0.6 MG/DL (0.2-1.0)
--- NOTE | 2019-09-22 20:00 | NUR ---
ED Nurse Note: ERMD bedside speaking with pt and family.
--- NOTE | 2019-09-22 20:05 | NUR ---
ED Nurse Note: ERMD OK with not obtaining urine sample. Pt unable to provide sample at this time.
--- NOTE | 2019-09-22 20:20 | NUR ---
ED Nurse Note: COVID swab done and sent to lab.
[2019-09-22] MEDS ORDERED: PROMETHAZINE-D118 ML ORAL (20:35)
[2019-09-22] MEDS ORDERED: LEVAQUIN750 MG ORAL (20:35)
[2019-09-22] MEDS ORDERED: ONDANSETRON ODT4 MG BC (20:35)
[2019-09-22 20:45] VITALS: BP 142/74
--- NOTE | 2019-09-22 20:45 | NUR ---
ER DISCHARGE NOTE: Patient is cleared to be discharged per ERMD, pt is aox4, on room air, with stable vital signs. pt was given dc and prescription instructions, pt was able to verbalize understanding, pt id band and iv site removed without complications. pt is able to ambulate with steady gait. pt took all belongings and accompanied by family.
--- NOTE | 2019-09-22 21:32 | Emergency Room Report ---
History of Present Illness General Chief Complaint: Generalized Weakness Source: Patient, Medical Record Present Illness HPI 79-year-old male presents ED for evaluation. Brought in by and son. States he has been coughing for the last few weeks. Cough is dry. Denies fevers or chills. Denies chest pain or shortness of breath. States he felt weak today. Family called his PMD and told him to go to the ER. Patient lives with his and his son and daughter. States also has a cough. States he has been self isolating at home. Denies nausea or vomiting. No other aggravating relieving factors. 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 Patient History Past Medical History: DM, HTN Pertinent Family History: none Social History: Denies: smoking, alcohol use, drug use Immunizations: UTD Reviewed Nursing Documentation: PMH: Agreed; PSxH: Agreed Nursing Documentation-PMH Hx Hypertension: Yes Hx Diabetes: Yes Hx Cancer: Yes - colon and prostate cancer Hx Gastrointestinal Problems: No - GERD Hx Neurological Problems: Yes - left nephrectomy Hx Dizziness: Yes Review of Systems All Other Systems: negative except mentioned in HPI Physical Exam Vital Signs Date Time Temp Pulse Resp B/P (MAP) Pulse Ox O2 Delivery O2 Flow Rate FiO2 09/22/19 18:03 99.3 68 16 150/81 (104) 96 Room Air Sp02 EP Interpretation: reviewed, normal General Appearance: no apparent distress, alert, GCS 15, non-toxic Head: normocephalic, atraumatic Eyes: bilateral eye normal inspection, bilateral eye PERRL ENT: hearing grossly normal, normal pharynx, no angioedema, normal voice Neck: full range of motion, supple/symm/no masses Respiratory: chest non-tender, lungs clear, normal breath sounds, speaking full sentences Cardiovascular #1: regular rate, rhythm, no edema Cardiovascular #2: 2+ carotid (R), 2+ carotid (L), 2+ radial (R), 2+ radial (L) , 2+ dorsalis pedis (R), 2+ dorsalis pedis (L) Gastrointestinal: normal bowel sounds, non tender, soft, non-distended, no guarding, no rebound Rectal: deferred Genitourinary: normal inspection, no CVA tenderness Musculoskeletal: back normal, normal range of motion, gait/station normal, non- tender Neurologic: alert, motor strength/tone normal, oriented x3, sensory intact, responsive, speech normal Psychiatric: judgement/insight normal, memory normal, mood/affect normal, no suicidal/homicidal ideation Reflexes: 3+ bicep (R), 3+ bicep (L), 3+ tricep (R), 3+ tricep (L), 3+ knee (R) , 3+ knee (L) Lymphatic: no adenopathy Medical Decision Making Diagnostic Impression: Primary Impression: Cough Additional Impressions: Episode of generalized weakness Chronic renal disease Qualified Codes: N18.9 - Chronic kidney disease, unspecified ER Course Hospital Course 79-year-old male presents to ED complaining of cough, weakness Differential diagnoses include: URI, bronchitis, asthma/COPD, pneumonia Clinical course Patient placed on stretcher. After initial history, physical exam reveals an elderly male in no acute distress. Bilateral TM unremarkable. No pharyngeal erythema. No tonsillar exudates. No lymphadenopathy. lungs clear. I ordered labs, IV fluids, chest x-ray. Labs reviewed- no leukocytosis, hemoglobin/hematocrit stable, Cr 2.3 Chest x-ray shows atelecasis R lung base. no focal consolidation I reviewed EMR. Patient has been here previously creatinine is within normal limits for the patient. Patient states he feels better. I discussed findings with patient. We discussed option for admission. He would prefer to be discharged home. I discussed with and son who were in waiting room. Discussed possibility of COVID. We will send COVID swab. Patient should self isolate in the meanwhile. Will discharge with antibiotics. and son agree. They will have patient follow-up with PMD Diagnosis - cough, episode of generalized weakness, chronic renal disease Stable and discharged home with prescriptions for promethazine, Levaquin. self isolate. we will contact you regarding COVID results. Instructed to followup with PMD. Return to ED if symptoms recur or worsen Labs Test 09/22/19 18:00 White Blood Count 7.9 K/UL (4.8-10.8) Red Blood Count 4.45 M/UL (4.70-6.10) Hemoglobin 13.1 G/DL (14.2-18.0) Hematocrit 41.8 % (42.0-52.0) Mean Corpuscular Volume 94 FL (80-99) Mean Corpuscular Hemoglobin 29.5 PG (27.0-31.0) Mean Corpuscular Hemoglobin Concent 31.3 G/DL (32.0-36.0) Red Cell Distribution Width 13.3 % (11.6-14.8) Platelet Count 221 K/UL (150-450) Mean Platelet Volume 7.7 FL (6.5-10.1) Neutrophils (%) (Auto) 72.0 % (45.0-75.0) Lymphocytes (%) (Auto) 8.6 % (20.0-45.0) Monocytes (%) (Auto) 16.9 % (1.0-10.0) Eosinophils (%) (Auto) 0.0 % (0.0-3.0) Basophils (%) (Auto) 2.5 % (0.0-2.0) Sodium Level 139 MMOL/L (136-145) Potassium Level 4.0 MMOL/L (3.5-5.1) Chloride Level 101 MMOL/L (98-107) Carbon Dioxide Level 24 MMOL/L (21-32) Anion Gap 14 mmol/L (5-15) Blood Urea Nitrogen 14 mg/dL (7-18) Creatinine 2.3 MG/DL (0.55-1.30) Estimat Glomerular Filtration Rate 33.2 mL/min (>60) Glucose Level 155 MG/DL (74-106) Calcium Level 9.7 MG/DL (8.5-10.1) Total Bilirubin 0.6 MG/DL (0.2-1.0) Aspartate Amino Transf (AST/SGOT) 37 U/L (15-37) Alanine Aminotransferase (ALT/SGPT) 40 U/L (12-78) Alkaline Phosphatase 93 U/L (46-116) Total Protein 8.3 G/DL (6.4-8.2) Albumin 4.2 G/DL (3.4-5.0) Globulin 4.1 g/dL Albumin/Globulin Ratio 1.0 (1.0-2.7) Chest X-Ray Diagnostic Results Chest X-Ray Diagnostic Results : Chest X-Ray Ordered: Yes # of Views/Limited/Complete: 1 View Indication: Other - cough EP Interpretation: Yes Interpretation: no consolidation, no effusion, no pneumothorax, no acute cardiopulmonary disease Impression: No acute disease Electronically Signed by: Electronically signed by Federico Marshall MD Last Vital Signs Date Time Temp Pulse Resp B/P (MAP) Pulse Ox O2 Delivery O2 Flow Rate FiO2 09/22/19 19:04 99.3 88 16 150/81 96 Room Air Status: improved Disposition: HOME, SELF-CARE Condition: Stable Scripts D-Methorphan Hb/Prometh Hcl* (PROMETHAZINE-DM SYRUP*) 118 Ml Syrup 5 ML ORAL Q6H PRN for For Cough, #118 ML 0 Refills Prov: Federico Marshall MD 09/22/19 Ondansetron Odt* (ZOFRAN ODT*) 4 Mg Tab.rapdis 4 MG BC EVERY 6 HOURS PRN for Nausea & Vomiting, #10 TAB 0 Refills Prov: Federico Marshall MD 09/22/19 Levofloxacin* (LEVAQUIN*) 750 Mg Tablet 750 MG ORAL DAILY, #7 TAB Prov: Federico Marshall MD 09/22/19 Referrals: NON PHYSICIAN (PCP) Patient Instructions: Upper Respiratory Infection, Adult, [id number], Weakness Additional Instructions: we sent COVID swab. we will call you if positive lab results. in the meanwhile , please self-isolate. followup with your PMD Federico Marshall MD Sep 22, 2019 21:31
--- NOTE | 2019-09-23 09:58 | Diagnostic Imaging Report ---
Indication: Cough, shortness of breath Technique: One view of the chest Comparison: 03/02/2012 Findings: Inspiration is suboptimal. Atelectatic changes are seen at both lung bases. There may be some focal consolidation at the right lung base. The remainder the lungs and pleural spaces are clear. The heart is mildly enlarged. Impression: Cardiac megaly Hypoventilatory exam with bibasilar atelectasis Possible patchy infiltrate at the right lung base, early pneumonia possible
== END 2019-09-22 20:45 | disposition home or self-care (01) ==
LOC: EMR 18:24
DX: U07.1 COVID-19 (principal); R05 Cough; R53.1 Weakness; I12.9 Hypertensive chronic kidney disease with stage 1 through stage 4 chronic kidney disease, or unspecified chronic kidney disease; E11.22 Type 2 diabetes mellitus with diabetic chronic kidney disease; N18.9 Chronic kidney disease, unspecified; K21.9 Gastro-esophageal reflux disease without esophagitis; Z90.5 Acquired absence of kidney; Z85.038 Personal history of other malignant neoplasm of large intestine; Z85.46 Personal history of malignant neoplasm of prostate
CPT/HCPCS: 36415; 71045; 80053; 85025; 99284; J7040